=== PATIENT | female | born 1960 | race African-American/Black ===

== ENCOUNTER → 2016-07-13 | Outpatient (CLI) | payer OTHER ==
--- NOTE | 2016-07-13 11:22 | KCIC ---
PROCEDURE MRI study of the left knee without contrast HISTORY Left knee pain. Pain is located medially and anteriorly and has been present for 1 month with swelling and stiffness. TECHNIQUE Noncontrast MRI sequences of the left knee were performed in all 3 planes. COMPARISON None available. FINDINGS The anterior and posterior cruciate ligaments are intact. The quadriceps and patellar tendons are intact. There is degenerative truncation of the inner articular edge of the medial meniscus. No articular surface tear of the medial meniscus is seen. There is degenerative signal abnormality of the lateral meniscus. No articular surface tear of the lateral meniscus is seen. The medial collateral ligament is intact and no meniscal capsular separation is seen. The lateral collateral ligament complex and iliotibial band and popliteus tendon are intact. No posterior lateral corner injury is seen. No fracture or bone contusion or marrow infiltrative process is seen. There is some degenerative cystic change of the proximal tibial epiphysis underneath the medial tibial spine. This is near the attachment of the posterior cruciate ligament. There is degenerative bone marrow edema of the posterior medial corner of the medial tibial plateau. There is severe chondromalacia with surface irregularity but involving the medial femoral condylar articular cartilage. There is moderate degenerative spurring and mild joint space narrowing of the medial tibiofemoral joint compartment. There is mild chondromalacia involving the lateral tibiofemoral joint compartment more so the lateral femoral condyle. There is mild degenerative spurring of this joint compartment. The patella is normally aligned. There is mild chondromalacia patellae and trochlear chondromalacia. The medial and lateral retinacular ligaments are intact. The medial plica shelf is seen appears mildly thickened and edematous. There is soft tissue edema here as well. A small knee joint effusion is seen. No loose body is evident. A Conklin's cyst is seen which measures 5.2 centimeters in greatest vertical dimension. No muscle edema is seen. 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 Mild degenerative truncation of the inner articular edge of the body of the medial meniscus. Mild chondromalacia and mild primary degenerative osteoarthritis of the lateral tibiofemoral joint compartment. Mild chondromalacia patellae and trochlear chondromalacia. A medial plica shelf is seen which appears mildly thickened and edematous. There is soft tissue edema in this area as well. Conklin's cyst. Electronically signed by: Rene Scruggs MD (Jul 13, 2016 11:20:55)
== END | disposition home or self-care (01) ==
LOC: KCIC MRI 08:31
PROVIDERS: ATTEND Internal Medicine
DX: M17.12 Unilateral primary osteoarthritis, left knee (principal); M71.21 Synovial cyst of popliteal space [Baker], right knee
CPT/HCPCS: 73721